=== PATIENT | male | born 1975 | race Hispanic/Latino ===

== ENCOUNTER 2017-10-15 20:43 | Observation (INO) | payer BC, SELFPAY ==
--- NOTE | 2017-10-15 21:22 | RAD REPORT ---
EXAM DESCRIPTION: CT - Head Brain Wo Cont - 10/15/2017 9:10 pm CLINICAL HISTORY: Headache;Dizziness Drowsiness COMPARISON: HEAD BRAIN W O CONTRAST dated 07/06/2014 TECHNIQUE: All CT scans are performed using dose optimization technique as appropriate and may inclu de automated exposure control or mA/KV adjustment according to patient size. FINDINGS: No intracranial hemorrhage, hydrocephalus or extra-axial fluid collection.No areas of brai n edema or evidence of midline shift. Significant opacification of the left maxillary antrum, anterior left ethmoid air cell and left front al sinus noted with bony thickening most compatible with chronic sinusitis. The calvarium is intact. IMPRESSION: No acute intracranial abnormality. Chronic left-sided chronic sinusitis, likely related to ostiomeatal unit obstruction.
--- NOTE | 2017-10-15 21:48 | ER ---
Nurse's Notes [facility] Name: Hernán Barakat Age: 41 yrs Sex: Male : 1975 Arrival Date: 10/15/2017 Time: 20:44 Bed 27 Private MD: Diagnosis: Other chest pain;Essential (primary) hypertension;Acute sinusitis Presentation: 10/15 20:49 Presenting complaint: Patient states: Headache, chest pain, and intermittent left arm aj numbness for 3 days. Patient also reports dizziness and nausea. Transition of care: patient was not received from another setting of care. Onset of symptoms was October 12, 2017. Risk Assessment: Do you want to hurt yourself or someone else? Patient reports no desire to harm self or others. Initial Sepsis Screen: Does the patient meet any 2 criteria? No. Patient's initial sepsis screen is negative. Does the patient have a suspected source of infection? No. Patient's initial sepsis screen is negative. Care prior to arrival: None. 20:49 Method Of Arrival: Ambulatory 20:49 Acuity: LINA 3 aj Triage Assessment: 20:50 General: Appears in no apparent distress. comfortable, Behavior is calm, cooperative, aj appropriate for age. Pain: Complains of pain in face and chest. Neuro: Level of Consciousness is awake, alert, obeys commands, Oriented to person, place, time, situation, Appropriate for age Author'S Agent are equal bilaterally Moves all extremities. Full function Gait is steady, Speech is normal, Facial symmetry appears normal, Pupils are PERRLA, paresthesias in left arm Reports numbness intermittent to left arm for 3 days. Cardiovascular: Reports chest pain, lightheadedness, nausea, Capillary refill < 3 seconds in bilateral fingers Patient's skin is warm and dry. Respiratory: Airway is patent Respiratory effort is even, unlabored, Respiratory pattern is regular, symmetrical. Derm: Skin is intact, is healthy with good turgor, Skin is pink, warm \T\ dry. normal. Historical: - Allergies: 20:50 No Known Allergies; aj - Home Meds: 20:50 None [Active]; aj - PMHx: 20:50 None; aj - PSHx: 20:50 None; aj - Immunization history:: Adult Immunizations up to date. - Social history:: Smoking status: Patient uses tobacco products, smokes one-half pack cigarettes per day. - Ebola Screening: : Patient negative for fever greater than or equal to 101.5 degrees Fahrenheit, and additional compatible Ebola Virus Disease symptoms Patient denies exposure to infectious person Patient denies travel to an Ebola-affected area in the 21 days before illness onset No symptoms or risks identified at this time. - Family history:: not pertinent. Screenin:01 Abuse screen: Denies threats or abuse. Denies injuries from another. Nutritional rv screening: No deficits noted. Tuberculosis screening: No symptoms or risk factors identified. Fall Risk None identified. Assessment: 21:01 General: Appears in no apparent distress. comfortable, Behavior is calm, cooperative. rv Pain: Pain radiates to left arm Pain began 3 hours ago. 21:01 Neuro: Level of Consciousness is awake, alert, obeys commands, Oriented to person, rv place, time, situation. Cardiovascular: Capillary refill < 3 seconds. Respiratory: Airway is patent. GI: No signs and/or symptoms were reported involving the gastrointestinal system. : No signs and/or symptoms were reported regarding the genitourinary system. EENT: No signs and/or symptoms were reported regarding the EENT system. Derm: Skin is intact. Vital Signs: 20:50 BP 155 / 99; Pulse 91; Resp 17; Temp 97.5; Pulse Ox 99% on R/A; Weight 117.93 kg; aj Height 5 ft. 9 in. (175.26 cm); 22:26 BP 137 / 96; Pulse 74; Pulse Ox 98% on R/A; rv 20:50 Body Mass Index 38.39 (117.93 kg, 175.26 cm) ED Course: 20:44 Patient arrived in ED. al2 20:50 Triage completed. aj 20:50 Arm band placed on right wrist. Patient placed in an exam room. aj 20:[address] vm2 21:00 EKG done, by ED staff. jp3 21:01 Patient has correct armband on for positive identification. Placed in gown. Bed in low rv position. Call light in reach. Side rails up X 1. personnel monitor on. Pulse ox on. NIBP on. 21:01 Inserted saline lock: 20 gauge in right antecubital area, using aseptic technique. rv Patient maintains SpO2 saturation greater than 95% on room air. 21:09 CT completed. Patient tolerated procedure well. Patient moved back from CT. vm2 21:10 CT Head Brain wo Cont In Process Unspecified. EDMS 21:23 Raffaele Garza MD is Attending Physician. riya 21:30 Warm blanket given. Pillow given. jp3 21:47 Goldie Merchant MD is Hospitalizing Provider. riya 22:06 X-ray completed. Portable x-ray completed in exam room. Patient tolerated procedure bb2 well. 22:58 No provider procedures requiring assistance completed. Patient admitted, IV remains in rv place. intact. Administered Medications: 22:02 Drug: morphine 4 mg Route: IVP; Site: right antecubital; rv 22:24 Follow up: Response: No adverse reaction; Pain is decreased rv 22:02 Drug: Zofran 4 mg Route: IVP; Site: right antecubital; rv 22:24 Follow up: Response: No adverse reaction rv 22:02 Drug: Rocephin - (cefTRIAXone) 1 grams Route: IVPB; Infused Over: 30 mins; Site: right rv antecubital; 22:58 Follow up: IV Status: Completed infusion rv 22:05 Drug: NS 0.9% 1000 ml Route: IV; Rate: 125 ml/hr; Site: right antecubital; rv 22:25 Follow up: IV Status: Infusion continued upon admission rv 22:05 Drug: Aspirin Chewable Tablet 324 mg Route: PO; rv 22:25 Follow up: Response: No adverse reaction rv 22:05 Drug: Lopressor (metoprolol TARTRATE) 50 mg Route: PO; rv 22:25 Follow up: Response: No adverse reaction rv 22:05 Drug: Lovenox 1 mg/kg Route: Sub-Q; Site: left lower abdomen; rv 22:24 Follow up: Response: No adverse reaction rv Outcome: 21:47 Decision to Hospitalize by Provider. riya 22:58 Admitted to Tele accompanied by nurse, via wheelchair, room 426, with chart, Report rv called to DELGADO 22:58 Condition: good 22:59 Patient left the ED. rv Signatures: Dispatcher [employer] EDMS Ruby Adams RN RN aj Anderson, Corey, MD MD cha McGuire, Victoria 2 Fanny Galan bb2 Inga Rogel al2 Keyshawn Lux RN RN rv Pisarski, Nitish jp3
--- NOTE | 2017-10-15 21:48 | EDPHYS ---
Physician Documentation [facility] Name: Hernán Barakat Age: 41 yrs Sex: Male : 1975 Arrival Date: 10/15/2017 Time: 20:44 Bed 27 Private MD: ED Physician Raffaele Garza HPI: 10/15 21:44 This 41 yrs old Male presents to ER via Ambulatory with complaints of Chest riya Pain, Headache, Numbness Of Arm. 21:44 The patient or guardian reports chest pain that is located primarily in the substernal riya area, anterior chest wall. Onset: 5 day(s) ago. The pain radiates to the left arm. Associated signs and symptoms: The patient has no apparent associated signs or symptoms. The chest pain is described as a pressure. Duration: The patient or guardian reports multiple episodes, with no pattern. Modifying factors: The symptoms are alleviated by application of supplemental oxygen, remaining still. Severity of pain: At its worst the pain was moderate in the emergency department the pain has improved moderately. The patient has not experienced similar symptoms in the past. Historical: - Allergies: 20:50 No Known Allergies; aj - Home Meds: 20:50 None [Active]; aj - PMHx: 20:50 None; aj - PSHx: 20:50 None; aj - Immunization history:: Adult Immunizations up to date. - Social history:: Smoking status: Patient uses tobacco products, smokes one-half pack cigarettes per day. - Ebola Screening: : Patient negative for fever greater than or equal to 101.5 degrees Fahrenheit, and additional compatible Ebola Virus Disease symptoms Patient denies exposure to infectious person Patient denies travel to an Ebola-affected area in the 21 days before illness onset No symptoms or risks identified at this time. - Family history:: not pertinent. ROS: 21:44 Constitutional: Negative for fever, chills, and weight loss, Eyes: Negative for injury, riya pain, redness, and discharge, ENT: Negative for injury, pain, and discharge, Neck: Negative for injury, pain, and swelling, Respiratory: Negative for shortness of breath, cough, wheezing, and pleuritic chest pain, Abdomen/GI: Negative for abdominal pain, nausea, vomiting, diarrhea, and constipation, Back: Negative for injury and pain, : Negative for injury, bleeding, discharge, and swelling, MS/Extremity: Negative for injury and deformity, Skin: Negative for injury, rash, and discoloration, Neuro: Negative for headache, weakness, numbness, tingling, and seizure, Psych: Negative for depression, anxiety, suicide ideation, homicidal ideation, and hallucinations, Allergy/Immunology: Negative for hives, rash, and allergies, Endocrine: Negative for neck swelling, polydipsia, polyuria, polyphagia, and marked weight changes, Hematologic/Lymphatic: Negative for swollen nodes, abnormal bleeding, and unusual bruising. 21:44 Cardiovascular: Positive for chest pain, of the chest. Exam: 21:44 Constitutional: This is a well developed, well nourished patient who is awake, alert, riya and in no acute distress. Head/Face: Normocephalic, atraumatic. Eyes: Pupils equal round and reactive to light, extra-ocular motions intact. Lids and lashes normal. Conjunctiva and sclera are non-icteric and not injected. Cornea within normal limits. Periorbital areas with no swelling, redness, or edema. ENT: Nares patent. No nasal discharge, no septal abnormalities noted. Tympanic membranes are normal and external auditory canals are clear. Oropharynx with no redness, swelling, or masses, exudates, or evidence of obstruction, uvula midline. Mucous membranes moist. Neck: Trachea midline, no thyromegaly or masses palpated, and no cervical lymphadenopathy. Supple, full range of motion without nuchal rigidity, or vertebral point tenderness. No Meningismus. Chest/axilla: Normal chest wall appearance and motion. Nontender with no deformity. No lesions are appreciated. Respiratory: Lungs have equal breath sounds bilaterally, clear to auscultation and percussion. No rales, rhonchi or wheezes noted. No increased work of breathing, no retractions or nasal flaring. Abdomen/GI: Soft, non-tender, with normal bowel sounds. No distension or tympany. No guarding or rebound. No evidence of tenderness throughout. Back: No spinal tenderness. No costovertebral tenderness. Full range of motion. Male : Normal genitalia with no discharge or lesions. Skin: Warm, dry with normal turgor. Normal color with no rashes, no lesions, and no evidence of cellulitis. 21:44 Cardiovascular: Rate: normal, Rhythm: regular, Pulses: Pulses are 4+ in bilateral radial, brachial, femoral, popliteal, posterior tibial and and dorsalis pedis arteries.. Heart sounds: normal, Edema: is not appreciated, JVD: is not appreciated. Vital Signs: 20:50 BP 155 / 99; Pulse 91; Resp 17; Temp 97.5; Pulse Ox 99% on R/A; Weight 117.93 kg; aj Height 5 ft. 9 in. (175.26 cm); 22:26 BP 137 / 96; Pulse 74; Pulse Ox 98% on R/A; rv 20:50 Body Mass Index 38.39 (117.93 kg, 175.26 cm) aj MDM: 21:23 Patient medically screened. [facility] 21:55 Data reviewed: vital signs, nurses notes, lab test result(s), EKG, radiologic studies, [facility] plain films. 10/15 21:43 Order name: Basic Metabolic Panel [facility] 10/15 21:43 Order name: CBC with Diff [facility] 10/15 21:43 Order name: Ckmb [facility] 10/15 21:43 Order name: CPK [facility] 10/15 21:43 Order name: LFT's [facility] 10/15 21:43 Order name: Magnesium [facility] 10/15 21:43 Order name: NT PRO-BNP [facility] 10/15 21:43 Order name: PT-INR [facility] 10/15 21:43 Order name: Ptt, Activated [facility] 10/15 21:43 Order name: Troponin (emerg Dept Use Only) [facility] 10/15 21:43 Order name: Lipase [facility] 10/15 21:43 Order name: UDS [facility] 10/15 22:28 Order name: Urine Dipstick--Ancillary (enter results) ms 10/15 22:31 Order name: Urine Dipstick-Ancillary; Complete Time: 22:34 EDMS 10/15 20:53 Order name: CT Head Brain wo Cont; Complete Time: 22:34 ed1 10/15 21:43 Order name: XRAY Chest (1 view) [facility] 10/15 21:43 Order name: EKG; Complete Time: 21:44 [facility] 10/15 21:43 Order name: Cardiac monitoring; Complete Time: 22:06 [facility] 10/15 21:43 Order name: EKG - Nurse/Tech; Complete Time: 22:06 [facility] 10/15 21:43 Order name: IV Saline Lock; Complete Time: 22:06 [facility] 10/15 21:52 Order name: CONS Physician Consult [facility] 10/15 21:52 Order name: Echo with Doppler [facility] 10/15 22:17 Order name: RAD; Complete Time: 22:34 [facility] 10/15 21:43 Order name: Labs collected and sent; Complete Time: 22:06 [facility] 10/15 21:43 Order name: O2 Per Protocol; Complete Time: 22:06 [facility] 10/15 21:43 Order name: O2 Sat Monitoring; Complete Time: 22:06 [facility] 10/15 21:43 Order name: Urine Dipstick-Ancillary (obtain specimen); Complete Time: 22:25 [facility] Administered Medications: 22:02 Drug: morphine 4 mg Route: IVP; Site: right antecubital; rv 22:24 Follow up: Response: No adverse reaction; Pain is decreased rv 22:02 Drug: Zofran 4 mg Route: IVP; Site: right antecubital; rv 22:24 Follow up: Response: No adverse reaction rv 22:02 Drug: Rocephin - (cefTRIAXone) 1 grams Route: IVPB; Infused Over: 30 mins; Site: right rv antecubital; 22:58 Follow up: IV Status: Completed infusion rv 22:05 Drug: NS 0.9% 1000 ml Route: IV; Rate: 125 ml/hr; Site: right antecubital; rv 22:25 Follow up: IV Status: Infusion continued upon admission rv 22:05 Drug: Aspirin Chewable Tablet 324 mg Route: PO; rv 22:25 Follow up: Response: No adverse reaction rv 22:05 Drug: Lopressor (metoprolol TARTRATE) 50 mg Route: PO; rv 22:25 Follow up: Response: No adverse reaction rv 22:05 Drug: Lovenox 1 mg/kg Route: Sub-Q; Site: left lower abdomen; rv 22:24 Follow up: Response: No adverse reaction rv Disposition: 10/15/17 21:47 Hospitalization ordered by Goldie Merchant for Observation. Preliminary diagnosis are Other chest pain, Essential (primary) hypertension, Acute sinusitis. - Bed requested for Telemetry/MedSurg (observation). - Status is Observation. rv - Condition is Stable. - Problem is new. - Symptoms have improved. UTI on Admission? No Signatures: Dispatcher [employer] [facility] Maricruz Wilson RN RN mw Myers, Amanda, RN Raffaele Tavarez MD MD cha Vicente, Ronaldo, RN RN rv Corrections: (The following items were deleted from the chart) 21:52 21:47 Hospitalization Ordered by Goldie Merchant MD for Observation. Preliminary mw diagnosis is Other chest pain; Essential (primary) hypertension. Bed requested for Telemetry/MedSurg (observation). Status is Observation. Condition is Stable. Problem is new. Symptoms have improved. UTI on Admission? No. riya 22:35 21:52 10/15/2017 21:47 Hospitalization Ordered by Goldie Merchant MD for Observation. riya Preliminary diagnosis is Other chest pain; Essential (primary) hypertension. Bed requested for Telemetry/MedSurg (observation). Status is Observation. Condition is Stable. Problem is new. Symptoms have improved. UTI on Admission? No. mw 22:59 22:35 10/15/2017 21:47 Hospitalization Ordered by Goldie Merchant MD for Observation. rv Preliminary diagnosis is Other chest pain; Essential (primary) hypertension; Acute sinusitis. Bed requested for Telemetry/MedSurg (observation). Status is Observation. Condition is Stable. Problem is new. Symptoms have improved. UTI on Admission? No. riya
[2017-10-15] MEDS ORDERED: ACETAMINOPHEN 500 MG TAB PO PRN (22:03)
--- NOTE | 2017-10-15 22:17 | RAD REPORT ---
EXAM DESCRIPTION: RAD - Chest Single View - 10/15/2017 10:07 pm CLINICAL HISTORY: COUGH Chest pain. COMPARISON: CHEST SINGLE VIEW dated 07/06/2014 FINDINGS: Portable technique limits examination quality. The lungs are grossly clear. The heart is normal in size. No displaced fractures. IMPRESSION: No acute intrathoracic process suspected.
[2017-10-15 22:31] LABS: Urine Blood NEGATIVE (NEG); Urine Glucose NEGATIVE (NEG); Urine Protein TRACE (NEG); Urine Specific Gravity >1.030 (1.005-1.030); Urine pH 6.5 (5.0-7.0)
[2017-10-15 22:32] LABS: Protime INR 1.13
[2017-10-15 22:39] LABS: Barbiturates NEGATIVE (NEGATIVE); Benzodiazepines NEGATIVE (NEGATIVE); Cocaine NEGATIVE (NEGATIVE); METHAMPHETAM NEGATIVE (NEGATIVE); Methadone NEGATIVE (NEGATIVE); Opiates POSITIVE (NEGATIVE); Phencyclidine NEGATIVE (NEGATIVE); THC Cannibis NEGATIVE (NEGATIVE)
[2017-10-15 22:43] LABS: ALT/SGPT 41 U/L (12-78); AST/SGOT 21 U/L (15-37); Alkaline Phosphatase 93 U/L (45-117); BUN Blood Urea Nitrogen 14 mg/dL (7-18); Bicarbonate 26 mmol/L (21-32); Bilirubin Direct < 0.1 mg/dL (0-0.2); Bilirubin Total 0.4 mg/dL (0.2-1.0); CKMB Creatine Kinase MB < 1.0 ng/mL (0.3-3.6); Creatine Phosphokinase 155 U/L (39-308); Glucose Level 98 mg/dL (74-106); Lipase 163 U/L (73-393); Magnesium 2.4 mg/dL (1.8-2.4); NT PRO-BNP 24 pg/mL (<125); Potassium 3.4 mmol/L (3.5-5.1); Protein, Total 7.8 g/dL (6.4-8.2); Sodium Level 141 mmol/L (136-145)
[2017-10-15 22:50] LABS: Absolute Lymphocytes (CBC) 2.2 K/uL (0.7-4.9); Absolute Monocytes 0.7 K/uL (0.1-1.3); Absolute Neutrophil 5.2 K/uL (1.8-8.0); Basophils % 0.7 % (0-1.3); Eosinophils % 2.1 % (0-4.4); Hematocrit 43.9 % (39.6-49.0); Lymphocytes % 26.6 % (15.3-44.8); MCH 28.9 pg (27.0-35.0); MCV 85.1 fL (80-100); MPV 7.9 fL (7.6-11.3); Monocytes % 8.4 % (3.3-12.3); RBC Red Blood Cell Count 5.16 M/uL (4.33-5.43)
[2017-10-15] MEDS: MORPHINE 4 MG/ML SYR IV PRN (23:57)
[2017-10-16 00:14] VITALS: BMI 39.0
[2017-10-16] MEDS: MORPHINE 4 MG/ML SYR IV PRN (04:59)
[2017-10-16] MEDS ORDERED: REGADENOSON 0.4 MG/5 ML SYR IV ONE (08:13)
[2017-10-16] MEDS ORDERED: ASPIRIN 325 MG TAB PO SCH (09:00)
[2017-10-16] MEDS ORDERED: ENOXAPARIN 40 MG/0.4 ML SQ SCH (09:00)
--- NOTE | 2017-10-16 10:05 | RAD REPORT ---
EXAM DESCRIPTION: NM - Rest Stress Cardiac Imaging - 10/16/2017 9:56 am CLINICAL HISTORY: Chest pain COMPARISON: None. TECHNIQUE: The patient was administered 10.9 mCi of Tc 99m Sestamibi prior to resting SPECT imaging of the heart. The patient was then administered 30.2 mCi of Tc 99m Sestamibi following exercise or ph armacologic stress. Multiplanar SPECT images were reviewed. FINDINGS: The end diastolic volume is 146 ml, the end systolic volume is 64 ml, and the ejection fra ction is 56 %. Physiologic distribution of the radiopharmaceutical through the myocardium is noted. No stress induce d ischemic defect is seen to suggest stress induced ischemia. No fixed defect is seen to suggest hibe rnating myocardium or scarred myocardium. IMPRESSION: No stress induced ischemia or other suspicious findings. End-diastolic volume is enlarged at 146 mL. Ejection fraction is normal at 56%.
[2017-10-16] MEDS: METOPROLOL TAR 50 MG TAB PO SCH ×2 (10:44→21:02)
--- NOTE | 2017-10-16 12:05 | P.HP ---
Certification for Inpatient Patient admitted to: Observation With expected LOS: <2 Midnights Patient will require the following post-hospital care: None Practitioner: I am a practitioner with admitting privileges, knowledge of patient current condition, hospital course, and medical plan of care. Services: Services provided to patient in accordance with Admission requirements found in Title 42 Section 412.3 of the Code of Federal Regulations Patient History Date of Service: 10/15/17 Reason for admission: CP r/o ACS History of Present Illness: patient is a 41-year-old gentleman who came to the hospital chest pain. Pain was mainly in the left side of his chest. Patient has been moving heavy equipment he also has a history of gastric ulcer disease. Patient was admitted for further evaluation. Patient denies any history of heart disease. He denies any hypertension. He denies any diabetes. He denies any dyslipidemia. He does have a history of tobacco abuse. Patient will be admitted to be ruled out for acute coronary syndrome. Will also get echocardiogram and possibly stress test while he is in the hospital. Allergies No Known Allergies Allergy (Verified 10/16/17 05:11) Home Medications: NK [No Home Meds] 10/16/17 - Past Medical/Surgical History Has patient received pneumonia vaccine in the past: No Diabetic: No Past Medical History: Patient denies medical history Past Surgical History: Patient denies surgical history - Family History Father History Unknown: Yes - Social History Smoking Status: Current every day smoker Alcohol use: No CD- Drugs: No Caffeine use: Yes Place of Residence: Home Review of Systems 10-point ROS is otherwise unremarkable Physical Examination - Vital Signs Temperature: 97.2 F Blood Pressure: 107/64 Pulse: 66 Respirations: 17 Pulse Ox (%): 94 - Physical Exam General: Alert, In no apparent distress, Oriented x3 HEENT: Atraumatic, PERRLA, Mucous membr. moist/pink, EOMI, Sclerae nonicteric Neck: Supple, 2+ carotid pulse no bruit, No LAD, Without JVD or thyroid abnormality Respiratory: Clear to auscultation bilaterally, Normal air movement Cardiovascular: Regular rate/rhythm, Normal S1 S2 Gastrointestinal: Normal bowel sounds, Soft and benign, Non-distended, No tenderness Musculoskeletal: No clubbing, No swelling, No tenderness Integumentary: No rashes Neurological: Normal gait, Normal speech, Normal strength at 5/5 x4 extr, Normal tone, Normal affect Lymphatics: No axilla or inguinal lymphadenopathy - Studies Laboratory Data (last 24 hrs) 10/15/17 21:30: PT 13.3 H, INR 1.13, APTT 34.8 10/15/17 21:30: WBC 8.3, Hgb 14.9, Hct 43.9, Plt Count 428 H 10/15/17 21:30: Sodium 141, Potassium 3.4 L, BUN 14, Creatinine 1.20, Glucose 98 , Magnesium 2.4, Total Bilirubin 0.4, AST 21, ALT 41, Alkaline Phosphatase 93, Lipase 163 Assessment & Plan - Problems (Diagnosis) (1) Tobacco abuse Current Visit: Yes Status: Acute (2) Chest pain Onset Date: 10/16/17 Current Visit: Yes Status: Acute Qualifiers: Chest pain type: chest pain on breathing Qualified Code(s): R07.1 - Chest pain on breathing; R07.81 - Pleurodynia - Plan 1. Serial troponins and EKG 2. Cardiology consultation 3. Echocardiogram and inpatient stress test(pending cardiology evaluation) 4. Anti-platelet therapy, anti coagulation, beta-robinson, statin, and O2 as needed 5. IV morphine for pain 6. Nitro p.r.n. Discharge Plan: Home - Advance Directives Does patient have a Living Will: No Does patient have a Durable POA for Healthcare: No - Code Status/Comfort Care Code Status Assessed: Yes Code Status: Full Code Critical Care: No Time Spent Managing PTS Care (In Minutes): 50
--- NOTE | 2017-10-16 15:38 | P.SSS ---
Patient History Date of Service: 10/16/17 Reason for admission: CP r/o ACS History of Present Illness: patient is a 41-year-old gentleman who came to the hospital chest pain. Pain was mainly in the left side of his chest. Patient has been moving heavy equipment he also has a history of gastric ulcer disease. Patient was admitted for further evaluation. Patient denies any history of heart disease. He denies any hypertension. He denies any diabetes. He denies any dyslipidemia. He does have a history of tobacco abuse. Patient will be admitted to be ruled out for acute coronary syndrome. Will also get echocardiogram and possibly stress test while he is in the hospital. Allergies No Known Allergies Allergy (Verified 10/16/17 05:11) Home Medications: Albuterol Inhaler [Ventolin Inhaler*] 2 puff IH Q6H PRN #1 hfa.aer.ad 10/16/17 - Past Medical/Surgical History Has patient received pneumonia vaccine in the past: No Diabetic: No - Family History Father History Unknown: Yes - Social History Smoking Status: Current every day smoker Alcohol use: No CD- Drugs: No Caffeine use: Yes Place of Residence: Home Review of Systems 10-point ROS is otherwise unremarkable General: As per HPI Physical Examination - Vital Signs Temperature: 97.2 F Blood Pressure: 107/64 Pulse: 66 Respirations: 17 Pulse Ox (%): 94 - Physical Exam General: Alert, In no apparent distress HEENT: Atraumatic, PERRLA, Mucous membr. moist/pink, EOMI, Sclerae nonicteric Neck: Supple, 2+ carotid pulse no bruit, No LAD, Without JVD or thyroid abnormality Respiratory: Clear to auscultation bilaterally, Normal air movement Cardiovascular: Regular rate/rhythm, Normal S1 S2 Gastrointestinal: Normal bowel sounds, No tenderness Musculoskeletal: No tenderness Integumentary: No rashes Neurological: Normal gait, Normal speech, Normal strength at 5/5 x4 extr, Normal tone, Normal affect Lymphatics: No axilla or inguinal lymphadenopathy - Studies Laboratory Data (last 24 hrs) 10/15/17 21:30: PT 13.3 H, INR 1.13, APTT 34.8 10/15/17 21:30: WBC 8.3, Hgb 14.9, Hct 43.9, Plt Count 428 H 10/15/17 21:30: Sodium 141, Potassium 3.4 L, BUN 14, Creatinine 1.20, Glucose 98 , Magnesium 2.4, Total Bilirubin 0.4, AST 21, ALT 41, Alkaline Phosphatase 93, Lipase 163 - Diagnosis (Problem(s)) (1) Chest pain Onset Date: 10/16/17 Current Visit: Yes Status: Acute Qualifiers: Chest pain type: chest pain on breathing Qualified Code(s): R07.1 - Chest pain on breathing; R07.81 - Pleurodynia (2) Hypertension Onset Date: 10/16/17 Current Visit: Yes Status: Acute (3) Tobacco abuse Current Visit: Yes Status: Acute Treatment Summary: Overall during the hospital stay patient remained stable The patient was initially admitted to the hospital for chest pain ACS rule out. Patient had an echocardiogram done here in the hospital along with arm stress test. Both of which were within normal limits. Patient then was discharged home under stable condition. Patient's chest pain was most likely secondary to COPD. Patient has been tobacco smoker for a long time and was educated extensively on tobacco cessation. Patient has not been taking any rescue inhalers for now for his COPD. Patient was prescribed albuterol for his COPD and chest tightness that he was experiencing for 3-4 days. Patient also noted that he was wheezing a lot. Patient was asked to follow up pulmonology. Patient had marked improvement in his hospital. Patient agree with the plan and thus was discharged home under stable condition and prescription for albuterol. - Disposition Disposition: ROUTINE DISCHARGE Condition: GOOD Diet: Regular Activity: Ad price
[2017-10-16 16:35] VITALS: O2SAT 97
--- NOTE | 2017-10-16 17:15 | EKG ---
Test Date: 2017-10-15 Test Time: 21:00:09 Specialty Development Consultant: MARCO MEASUREMENT RESULTS: Intervals: Rate: 78 IN: 146 QRSD: 90 QT: 386 QTc: 440 [place]: P: 21 IN: 146 QRS: -22 T: 27 INTERPRETIVE STATEMENTS: Normal sinus rhythm Normal ECG Compared to ECG 07/06/2014 10:03:27 No significant changes Electronically Signed On 10-16-17 17:11:27 CDT by Kaushal Dan
[2017-10-16 21:03] VITALS: BP 130/71
[2017-10-16 21:12] VITALS: TEMP 97.9
--- NOTE | 2017-10-17 06:12 | CON ---
Date of Consultation: 10/16/2017 I saw the patient on 10/16/2017. Reason For Admission: Chest pain. History Of Present Illness: Mr. Pollack is a 41-year-old male who has no significant past medical hi story. He came in with chest pain that is described as tightness and pressure, worse with movement. Also, had headache and numbness in the arm. He was hypertensive when he came in with a blood pressu re 175/84. His urinalysis shows positive opiates. He weighed 264 pounds. Prior to his chest pain, he had picked up a small motor off a tractor, and this is when his pain began. He did not have any n ausea, vomiting, diaphoresis, PND, orthopnea, pedal edema, palpitations, or syncope. His cardiac enz ymes, troponin, CPKs and MB, as well as BNP and EKG were normal. His chest x-ray was normal. Past Medical History: Negative. Allergies: NONE. Review of Systems: Negative. Social History: Negative for tobacco. Family History: Positive for heart disease. Medications: At home are none. Physical Examination: Vital Signs: Stable. He was afebrile. HEENT: Negative. Neck: Supple with no bruit. Chest: Clear. Cardiac: Examination revealed a regular rhythm and rate without any murmurs, gallops, or rubs. Abdomen: Benign. Extremities: Revealed no clubbing, cyanosis, or edema. Impression And Plan: Atypical chest pain, mostly musculoskeletal. The patient, however, has multipl e risk factors including family history of hypertension, his age, his gender. I recommended we do a stress test and an echocardiogram today before he goes home. CASSIDY/HILDA Voice ID: [id number] Report ID: [id number]
--- NOTE | 2017-10-19 08:10 | ECHO ---
HEIGHT: 5 ft 9 in WEIGHT: 264 lb 8 oz DATE OF STUDY: 10/16/[address]: Raffaele Garza MD 2-DIMENSIONAL: YES M.MODE: YES DOPPLER: YES COLOR FLOW: YES TDS: YES PORTABLE: NO DEFINITY: NO BUBBLE STUDY: NO DIAGNOSIS: CHEST PAIN CARDIAC HISTORY: CATHERIZATION: NO SURGERY: NO PROSTHETIC VALVE: NO PACEMAKER: NO MEASUREMENTS (cm) DIASTOLIC (NORMALS) SYSTOLIC (NORMALS) IVSd 1.2 (0.6-1.2) LA Diam 4.5 (1.9-4.0) LVEF 59% LVIDd 5.4 (3.5-5.7) LVIDs 3.7 (2.0-3.5) %FS 32% LVPWd 1.3 (0.6-1.2) Ao Diam 2.6 (2.0-3.7) 2 DIMENSIONAL ASSESSMENT: RIGHT ATRIUM: NORMAL LEFT ATRIUM: NORMAL RIGHT VENTRICLE: NORMAL LEFT VENTRICLE: NORMAL TRICUSPID VALVE: NORMAL MITRAL VALVE: NORMAL PULMONIC VALVE: NORMAL AORTIC VALVE: NORMAL PERICARDIAL EFFUSION: NONE AORTIC ROOT: NORMAL LEFT VENTRICULAR WALL MOTION: NORMAL DOPPLER/COLOR FLOW: NORMAL COMMENTS: NORMAL 2D ECHOCARDIOGRAM WITH DOPPLER. NO WALL MOTION ABNORMALITY. NO EFFUSION. TECHNOLOGIST: Laurie BELL
--- NOTE | 2017-10-19 09:02 | TREADPHA ---
DX: CHEST PAIN Date of Study: 10/16/2017 Ht: 5 9 Wt: 264 lb 8 oz Consulting Physician: HECTOR MEDICATIONS: TYLENOL, LOVENOX, ASPIRIN, LOPRESSOR. HISTORY: 41 YEAR OLD MALE COMPAINTS OF CHEST PAIN MEDICAL HISTORY: NONE. SMOKES PACK PER DAY. PHYSICIAL EXAMINATION: RESTING B.P.: 134/94 RESTING H.R.: 56 RESTING EKG: NORMAL. PROTOCOL: LEXISCAN EXERCISE TIME: 3:30 B.P. AT PEAK STRESS: 129/99 IMPRESSION: LEXISCAN INJECTED, CARDIOLITE INJECTED PER PROTOCOL SEE NUCLEAR MEDICINE REPORT. NO SUPRAVENTRICULAR TACHYCARDIA. NO VENTRICULAR TACHYCARDIA. NO PREMATURE VENTRICULAR COMPLEXES. DENIED CHEST PAIN.
== END 2017-10-16 21:15 | disposition home or self-care (01) ==
LOC: ER 20:43 → ERHOLD 21:48 → 4TH 22:51
PROVIDERS: ADMIT Hospitalist; ATTEND Hospitalist
DX: R07.9 Chest pain, unspecified (principal); I10 Essential (primary) hypertension; F17.210 Nicotine dependence, cigarettes, uncomplicated
CPT/HCPCS: 36415; 70450; 71045; 78452; 80048; 80061; 80076; 80307; 81003; 82550; 82553; 83690; 83735; 83880; 84484; 85025; 85610; 85730; 93005; 93017; 93306; 96365; 96372; 96375; 99285; A9500; G0378; J1650; J2785

== ENCOUNTER 2019-04-27 06:25 | Day surgery (SDC) | payer BC, OTHER ==
--- NOTE | 2019-04-26 13:41 | RAD REPORT ---
EXAM DESCRIPTION: RAD - Chest Pa And Lat (2 Views) - 04/26/2019 1:31 pm CLINICAL HISTORY: preop Chest pain. COMPARISON: Chest Single View dated 10/15/2017; CHEST SINGLE VIEW dated 07/06/2014 FINDINGS: The lungs are clear. The heart is normal in size. No displaced fractures. IMPRESSION: No acute or concerning finding suspected.
[2019-04-26 14:11] LABS: Absolute Lymphocytes (CBC) 2.4 K/uL (0.7-4.9); Basophils % 0.8 % (0-1.3); Hematocrit 48.1 % (39.6-49.0); Lymphocytes % 35.9 % (15.3-44.8); MPV 7.6 fL (7.6-11.3); RBC Red Blood Cell Count 5.72 M/uL (4.33-5.43)
[2019-04-26 14:27] LABS: BUN Blood Urea Nitrogen 9 mg/dL (7-18); Bicarbonate 28 mmol/L (21-32); Glucose Level 85 mg/dL (74-106); Potassium 3.9 mmol/L (3.5-5.1); Sodium Level 137 mmol/L (136-145)
--- NOTE | 2019-04-26 15:10 | EKG ---
Test Date: 2019-04-26 Test Time: 13:14:49 Tube Skiver: LUISITO MEASUREMENT RESULTS: Intervals: Rate: 73 MD: 150 QRSD: 86 QT: 390 QTc: 429 [place]: P: 42 MD: 150 QRS: 22 T: 43 INTERPRETIVE STATEMENTS: Normal sinus rhythm Normal ECG Compared to ECG 10/15/2017 21:00:09 No significant changes Electronically Signed On 04-26-19 15:09:34 SENIOR PROGRAMMER by Kaushal Dan
--- OUTSIDE RECORDS SUMMARY | 2019-04-27 06:29 | XMS REPORT ---
:1975 Author Organization [employer] Care Team Providers Name Role Phone Jose Ramon Joan Provider Role Unavailable Allergies, Adverse Reactions, Alerts Substance Reaction Event Type N.K.D.A. Info Not Available Non Drug Allergy Problems Problem Type Condition Code Onset Dates Condition Status Problem Encounter for general adult medical Z00.01 Active examination with abnormal findings Problem Chronic GERD K21.9 Active Problem Obesity (BMI 30-39.9) E66.9 Active Assessment Chronic GERD K21.9 Active Assessment Obesity (BMI 30-39.9) E66.9 Active Assessment Encounter for general adult medical Z00.01 Active examination with abnormal findings Medications Medication Code System Code Instructions Start Date End Date Status Dosage Protonix [facility] [id number] 40 MG Orally Once Jan 21, Active 1 tablet a day 2019 Results Name Result Date Reference Range Unit Abnormality Flag URINALYSIS AUTO W/O SCOPE (34244) ----NIT neg [id number] ----URO 0.2 [id number] ----PROTEIN neg [id number] ----pH 7.0 [id number] ----BLO neg [id number] ----GLUCOSE neg [id number] ----RIMMA neg [id number] ----BILIRUBIN neg [id number] ----KETONES neg [id number] ----SPECIFIC GRAVITY 1.020 [id number] A1c Component ----HbA1c 5.3 [id number] Immunizations Vaccine Administration Date [id number] 1st Jan 21, 2019 Flucelvax - single dose syringe Jan 21, 2019 Summary Purpose [facility] [employer] Submission
--- OUTSIDE RECORDS SUMMARY | 2019-04-27 06:29 | XMS REPORT ---
:1975 Author Organization [employer] Care Team Providers Name Role Phone Joan Albright Provider Role Unavailable Allergies, Adverse Reactions, Alerts Substance Reaction Event Type N.K.D.A. Info Not Available Non Drug Allergy Problems Problem Type Condition Code Onset Dates Condition Status Problem Encounter for general adult medical Z00.01 Active examination with abnormal findings Problem Chronic GERD K21.9 Active Problem Obesity (BMI 30-39.9) E66.9 Active Assessment Chronic GERD K21.9 Active Assessment Obesity (BMI 30-39.9) E66.9 Active Medications Medication Code System Code Instructions Start Date End Date Status Dosage Protonix [facility] [id number] 40 MG Orally Once Jan 21, Active 1 tablet a day 2019 Results No Known Results Summary Purpose [employer] Submission
[2019-04-27] MEDS ORDERED: Ringers Lactate 1,000 ML IV ONE (07:00)
[2019-04-27] MEDS ORDERED: CEFAZOLIN/SWI 1gm 1 GM/10 ML SYR ONE (07:00)
[2019-04-27] MEDS ORDERED: propofoL 200 MG/20 ML VIAL IV ONE (07:17)
[2019-04-27] MEDS ORDERED: MIDAZOLAM HCL 2 MG/2 ML INJ ONE (07:17)
[2019-04-27] MEDS ORDERED: LIDOCAINE 2% MPF 5 ML VIAL ONE (07:18)
[2019-04-27] MEDS ORDERED: FENTANYL CITR 100 MCG/2 ML ONE ×2 (07:18→08:07)
[2019-04-27] MEDS ORDERED: ONDANSETRON 4 MG/2 ML VIAL ONE ×2 (07:20→08:49)
[2019-04-27] MEDS ORDERED: GLYCOPYRROLATE 0.2 MG/ML SYR ONE (08:26)
[2019-04-27] MEDS ORDERED: EPHEDRINE SULF 50 MG/ML VIAL ONE (08:26)
--- NOTE | 2019-04-27 08:37 | P.BOP ---
Preoperative diagnosis: incarcerated tender umbilical hernia, morbid obesity Postoperative diagnosis: same Primary procedure: 1. open repair of incarcerated tender umbilical hernia with mesh Secondary procedure: 2. open repair of incarcerated tender ventral hernia Pattern Vault Clerk: GUILLE KATZ) Estimated blood loss: <10cc Specimen: hernia sac x 2 Findings: two hernias, incarcerated omentum Anesthesia: General Complications: None Transferred to: Recovery Room Condition: Good
[2019-04-27] MEDS ORDERED: KETOROLAC 30 MG/ML INJ ONE (08:49)
[2019-04-27] MEDS: HYDROMORPHONE HCL 2 MG/ML inj ONE ×2 (09:09→09:17)
[2019-04-27] MEDS ORDERED: CODEINE 30MG/APAP 300MG TAB ONE ×2 (10:01→10:05)
[2019-04-27 10:06] VITALS: TEMP 97
[2019-04-27 11:36] VITALS: BP 131/85; O2SAT 97
--- NOTE | 2019-05-02 20:02 | DS ---
Date of Discharge: 04/27/2019 Diagnosis: Umbilical and ventral hernia. Procedure: Open repair of the umbilical hernia with mesh and open repair of the ventral hernia. Disposition: Home. Activity: As tolerated. No heavy lifting. Followup: Follow up in my office in 1 week. Call for appointment [phone]. Keep area dry for 48 ho urs, then may shower. Medications: See orders. [place]/HILDA Voice ID: [id number] Report ID: [id number]
--- NOTE | 2019-05-02 20:05 | OP ---
Date of Procedure: 04/27/2019 Surgeon: Kemar Wade MD Radiology Special Procedure Tech: Mila De León. Preoperative Diagnoses: Incarcerated tender umbilical hernia, morbid obesity. Postoperative Diagnoses: Incarcerated tender umbilical hernia, morbid obesity, incarcerated tender v entral hernia. Procedure: 1.Open repair of incarcerated tender umbilical hernia with mesh. 2.Open repair of incarcerated tender ventral hernia. Anesthesia: General plus local. Findings: Two hernias, 2 of them have incarcerated omentum. Indications: This is the case of a 43-year-old patient, comes to us with a tender umbilical hernia. He is morbidly obese, so per patient, it is sometime difficult. The benefits, alternatives, and ris ks of this umbilical hernia repair fully explained to the patient with mesh placement, which include, but not limited to infection, bleeding, damage to adjacent structures, anesthesia complications, rec urrence, NE, and even . He also understands this may not relieve the symptoms. He might need m ore than one surgical intervention. He understands the importance of losing weight and not doing hea vy lifting. He understand he most likely will be using mesh as we see the fascia not strong enough. Pros and cons of mesh placement were fully explained to the patient in detail and all the questions were answered to his satisfaction and he did consent for mesh use. Description Of Procedure: Patient was brought to the operating room, placed in supine position. Ane sthesia was done without complication. Abdominal area was prepped and draped in the usual sterile fa shion. Local anesthesia was applied followed by sharp incision of the skin in the periumbilical nick on. Incision was carried down to fascia, which was opened under direct vision. Peritoneum was encou ntered, opened under direct vision. Once we have a hernia sac found the main 1, we put a finger in i t. We noticed that more cephalad. There is a ventral hernia too. So, we extended incision and we w ere able to just find the second hernia present. In the first hernia, we have incarcerated omentum, so we opened the hernia sac. We were able to reduce part of that, the rest which was suture ligated. The omentum was retracted back into the abdominal cavity after fully inspected and make sure there was no bleeding. We would more cephalad and we noticed that the patient had a ventral hernia, once a gain incarcerated omentum. We could not feel it before. Once again, because he is morbidly obese, b ut we found it, so we are going to fix at this moment. So, the hernia sac was removed. The omentum was reduced into the abdominal cavity. That area was closed, approximated in a [id number] fashi on. Due to the fascia present in the umbilical region to be weak, we proceeded then to put a Ventral ex mesh in that area. The mesh was placed inside the peritoneum pulled through the incision with the straps. Once we put the Ventralex mesh in, we proceeded to secure that with Prolene. Making sure t here are no intestines or any other structures between the mesh and the perineum. The straps were re moved. [id number]-ul-[id number] was used to close the fascia multiple times. The area was irrigated. Subcut aneous incision was closed with 3-0 chromic. Then, after that, the skin was approximated. Sponge co unt and instrument counts were correct. Patient tolerated the procedure well. Patient was sent to [facility] ecovery in stable condition. As mentioned, the ventral hernia was closed with a [id number] fash ion too. [place]/MODL Voice ID: [id number] Report ID: [id number]
== END 2019-04-27 11:00 | disposition home or self-care (01) ==
LOC: OR 06:25
PROVIDERS: ATTEND Surgery
PROC: 0WQF0ZZ Repair Abdominal Wall, Open Approach (ICD-10-PCS; 2019-04-27)
PROC: 0WUF0JZ Supplement Abdominal Wall with Synthetic Substitute, Open Approach (ICD-10-PCS; principal; 2019-04-27 07:30)
DX: K42.0 Umbilical hernia with obstruction, without gangrene (principal); K43.6 Other and unspecified ventral hernia with obstruction, without gangrene; E66.01 Morbid (severe) obesity due to excess calories; Z68.41 Body mass index [BMI] 40.0-44.9, adult
CPT/HCPCS: 49587; 49561; 93005; 85025; 80048; 36415; 88302; 71046; J2704; J2250; J1170; J3010 ×2; J0690; J7120; J2405 ×2